=== PATIENT | female | born 1955 | race Caucasian/White ===

== ENCOUNTER 2019-05-26 08:36 | Inpatient (IN) | payer BC, OTHER ==
[2019-05-20 12:16] VITALS: BMI 26.9
--- NOTE | 2019-05-26 07:38 | HP ---
History & Physical Update - History History: No Change - Physical Physical: No Change - Assessment Assessment: No Change - Plan Plan: No Change
[2019-05-26] MEDS ORDERED: GABAPENTIN 300 MG CAPSULE (FP) PO STA (09:42)
[2019-05-26] MEDS ORDERED: CEFAZOLIN 2 GM in DEXTROSE 5%-WATER - 100 ML IVPB ONE (09:42)
[2019-05-26] MEDS ORDERED: GABAPENTIN 300 MG CAPSULE (FP) PO ONE (09:45)
[2019-05-26] MEDS ORDERED: THROMBIN (RECOMBINANT) 5,000 UNIT VIAL TP ONE (09:48)
[2019-05-26] MEDS ORDERED: MIDAZOLAM HCL 2 MG/2 ML SINGLE DOSE VIAL ONE (10:38)
[2019-05-26] MEDS ORDERED: BUPIVACAINE LIPOSOME/PF (EXPAREL) 266 MG/20 ML VIAL ONE (10:38)
[2019-05-26] MEDS ORDERED: PROPOFOL 20 ML ONE ×2 (11:40)
[2019-05-26] MEDS ORDERED: SUCCINYLCHOLINE CHLORIDE 200 MG/10 ML VIAL ONE (11:41)
[2019-05-26] MEDS ORDERED: DEXAMETHASONE SOD PHOSPHATE 4 MG/1 ML VIAL ONE (11:51)
[2019-05-26] MEDS ORDERED: ONDANSETRON 4 MG/2 ML VIAL ONE (11:51)
[2019-05-26] MEDS ORDERED: ceFAZolin SODIUM 1 GM VIAL ONE (11:51)
[2019-05-26] MEDS ORDERED: LACTATED RINGERS SOLUTION 1,000 ML IV SCH ×2 (12:30→14:00)
[2019-05-26] MEDS ORDERED: ONDANSETRON 4 MG/2 ML VIAL IVPUSH PRN ×2 (12:30→13:55)
[2019-05-26] MEDS ORDERED: oxyCODONE HCL 5 MG TABLET PO PRN (12:30)
[2019-05-26] MEDS ORDERED: THROMBIN (BOVINE) 5,000 UNIT VIAL TP ONE (12:39)
--- NOTE | 2019-05-26 13:53 | OP ---
Operative Note - Note: Operative Date: 05/26/19 Pre-Operative Diagnosis: L4/5 spondylolithesis w/ radiculopathy Operation: Posterior Lumbar Decompression / Fusion / Instrumentation; Transforaminal Lumbar Interbody Fusion L4/5 with Allograft Implant / Neuromonitoring Post-Operative Diagnosis: Same as Pre-op Surgeon: Zachary Alvarado Grader [employer]: Hakeem Mauro Anesthesiologist/DOORPERSON OR LUGGAGE PORTER: Jewell Betts Anesthesia: Spinal Estimated Blood Loss (mls): 30 Fluid Volume Replaced (mls): 600 Operative Report Dictated: Yes
[2019-05-26] MEDS ORDERED: ACETAMINOPHEN 1000 MG/100 ML VIAL (NON FORMULARY) IVPB PRN (13:55)
[2019-05-26] MEDS ORDERED: KETOROLAC TROMETHAMINE 30 MG/1 ML VIAL IVPUSH PRN (13:55)
[2019-05-26] MEDS ORDERED: ACETAMINOPHEN 325 MG TABLET (FP) PO SCH (14:00)
[2019-05-26] MEDS ORDERED: ACETAMINOPHEN 325 MG TABLET (FP) ONE (14:46)
[2019-05-26] MEDS ORDERED: oxyCODONE HCL 5 MG TABLET PO ONE (15:10)
[2019-05-26] MEDS ORDERED: oxyCODONE HCL 5 MG TABLET ONE (15:14)
--- NOTE | 2019-05-26 15:43 | OP ---
DATE OF OPERATION: 05/26/2019 PREOPERATIVE DIAGNOSES: 1. Spondylolisthesis, L4-5. 2. Spinal stenosis, L4-5. POSTOPERATIVE DIAGNOSES: 1. Spondylolisthesis, L4-5. 2. Spinal stenosis, L4-5. PROCEDURE PERFORMED: 1. Transforaminal lumbar interbody fusion, L4-5. 2. Placement of instrumentation. 3. Placement of prosthetic cage. SURGEON: Zachary Alvarado MD SPECTACLE TRUER: ELLEN Flores ESTIMATED BLOOD LOSS: 50 mL. IV FLUIDS: Per Anesthesia. ANESTHESIA: Spinal/TLIP. COMPLICATIONS: There were none. DISPOSITION: Patient brought to the PACU in stable condition. INDICATION FOR SURGERY: The patient is a 64-year-old female who has been suffering from pain from her back down her legs. X-rays and MRI were completed, which noted that she has spondylolisthesis at L4-5. She had gone through an exhaustive course of treatment for this, which included medications, physical therapy as well as injections. Unfortunately, her pain continued to persist despite all this. At this point, risks, benefits, and alternatives were discussed and the patient consented to surgery. OPERATIVE NOTE: The patient was brought to the operating room by anesthesia staff. After appropriate patient identification was performed, spinal anesthesia was given, a TLIP block was also given. The patient was able to position herself prone onto the OR table, with all areas of bony prominences well padded at this time. The C- arm was brought in. The L4 and L5 pedicles were marked off. The back was prepped and draped in a sterile manner. At this point timeout was completed, and an incision was made bilaterally over the L4 and L5 pedicles. Dissection was carried down to the fascia. The fascia was split open at this time. Under C-arm guidance, trocars were advanced into both the L4 and L5 pedicles. Through the trocars, a wire was inserted. Over the wire, tap was performed and screws inserted. On the left-hand side, retractor blades were set up to expose the L4-5 facet joint. The facet joint was entered and removed. The disk was entered and removed. At this point, diskectomy was performed. The endplates were decorticated at this time. Bone graft was laid down. A cage filled with bone graft was placed in. Tulip heads were placed over the screws. A adrianne was measured and placed in. Caps and compression was applied. On the right-hand side, a adrianne was measured and placed in. Caps and compression was applied. All extra instrumentation was removed at this time. AP and lateral x-rays confirmed the instrumentation to be in good position. The fascia was closed using number 1 Vicryl suture. The subcutaneous tissue was closed with 2- 0 Vicryl suture. The skin was closed with 3-0 Monocryl suture. Dermabond was applied, Steri-Strips were applied, a sterile dressing applied. Patient was placed supine on the OR bed, extubated in the OR and brought to the PACU in stable condition. Shraddha JONES/[id number] MTDD
[2019-05-26 15:50] VITALS: BP 101/66; PULSE 80
[2019-05-26] MEDS ORDERED: diazePAM 2 MG TABLET ONE (16:22)
[2019-05-26] MEDS ORDERED: CEFAZOLIN 1 GM/D5W 1 GM/50 ML BAG ONE (16:22)
[2019-05-26 17:49] VITALS: TEMP 98.3
[2019-05-26] MEDS ORDERED: CEFAZOLIN 1 GM in DEXTROSE 5%-WATER - 50 ML IVPB ONE (18:15)
[2019-05-26] MEDS ORDERED: METOPROLOL TARTRATE 25 MG TABLET (FP) PO SCH (22:00)
[2019-05-26] MEDS ORDERED: GABAPENTIN 100 MG CAPSULE (FP) PO SCH (22:00)
[2019-05-26] MEDS ORDERED: DICLOFENAC SODIUM 75 MG TABLET.DR PO SCH (22:00)
[2019-05-26] MEDS ORDERED: diazePAM 2 MG TABLET PO SCH (22:00)
== END 2019-05-26 17:30 | disposition home or self-care (01) | DRG 460 ==
LOC: FM/S 08:36
PROVIDERS: ADMIT Orthopaedic Surgery Orthopaedic Surgery of the Spine; ATTEND Orthopaedic Surgery Orthopaedic Surgery of the Spine
PROC: 0SB20ZZ Excision of Lumbar Vertebral Disc, Open Approach (ICD-10-PCS; 2019-05-26)
PROC: 4A11X4G Monitoring of Peripheral Nervous Electrical Activity, Intraoperative, External Approach (ICD-10-PCS; 2019-05-26)
PROC: 0SG00AJ Fusion of Lumbar Vertebral Joint with Interbody Fusion Device, Posterior Approach, Anterior Column, Open Approach (ICD-10-PCS; principal; 2019-05-26 12:14)
DX: M48.061 Spinal stenosis, lumbar region without neurogenic claudication (principal); M43.16 Spondylolisthesis, lumbar region; M54.16 Radiculopathy, lumbar region
CPT/HCPCS: 72100-TC-FY; 94760